=== PATIENT | female | born 1935 | race Caucasian/White ===

== ENCOUNTER 2017-05-12 19:36 | Emergency (ER) | payer MEDICARE, SELFPAY ==
[2017-05-12 19:38] VITALS: BP 167/91; PULSE 92; RESP 18; TEMP 36.6; O2SAT 95; BMI 32.1
--- NOTE | 2017-05-12 20:48 | US_ITS ---
STUDY: ABDOMINAL ULTRASOUND - RIGHT UPPER QUADRANT REASON FOR VISIT: Female, 81 years old. Right upper quadrant pain TECHNIQUE: Ultrasound evaluation of the right upper quadrant was performed with real-time and static damon-scale imaging. TECHNICAL QUALITY: Adequate. COMPARISON: None. FINDINGS: Liver: The liver measures 19.1 cm. There is normal echogenicity of the liver. The bile ducts are within normal limits. There is hepatic color flow. The direction of portal flow is hepatopetal. There is no demonstrated mass lesion. Gallbladder: There is a markedly distended gallbladder. The gallbladder wall measures 6.6 mm. There is a negative sonographic Cruz's sign. There is pericholecystic fluid. There are multiple echogenic structures within the gallbladder, consistent with multiple gallstones. Common Bile Duct (C.B.D.): The common bile duct measures 7 mm. Pancreas: Normal size of the head, body and tail of the pancreas. There is normal echogenicity of the pancreas. There is no demonstrated pancreatic mass or cyst. Right Kidney: Normal size of the right kidney. The right kidney measures 11.1 x 4.2 x 4.1 cm. Normal renal cortex. The right cortex measures 1.1 cm. There is no demonstrated renal mass or cyst. There is no right hydronephrosis. US/Gallbladder IMPRESSION: Thick GB wall. There is a negative sonographic Cruz's sign. There is pericholecystic fluid. There are multiple echogenic structures within the gallbladder, consistent with multiple gallstones. Cholecystitis is suggested. There is dilation of the common bile duct. A common bile duct stone is not seen. Electronically Signed: Trace Knutson MD at 22:37 EST , Service support ,
[2017-05-12 21:09] LABS: Absolute Lymphocyte Count 1.57 X10^3/ul (0.83-4.51); Absolute Neutrophil Count 6.6 X10^3/uL (2.0-7.7); Basophil# 0.02 X10^3/uL; Basophil% 0.2 % (0-1); Eosinophils% 2.2 % (0-5); Hematocrit 43.1 % (37-47); Hemoglobin 14.1 g/dl (12.0-15.0); Lymphocyte # 1.57 X10^3/ul (4.0); Lymphocyte % 16.9 % (19-41); Mean Corp Hgb Conc 32.7 g/gl (32-36); Mean Corpuscular Hgb 30.8 pg (27.0-32.0); Mean Corpuscular Volume 94.1 fL (81-99); Mean Platelet Vol. 10.4 fl (6.2-12.0); Monocyte% 9.7 % (0-10); Neutrophil # 6.57 X10^3/uL (2.7-7.7); Neutrophil % 70.9 % (47-70); POSITIVE COUNT NO; POSITIVE DIFFERENTIAL NO; POSITIVE MORPHOLOGY NO; Platelet Count 244 K/mm3 (150-450); RBC Distribution Width CV 14.1 % (11.6-14.6); RBC Distribution Width SD 48.1 fl (35.1-43.9); Red Blood Count 4.58 M/mm3 (4.2-5.4); White Blood Count 9.3 K/mm3 (4.4-11.0)
[2017-05-12 21:22] LABS: ALB/GLOB Ratio 0.8 RATIO (0.9-2.4); AST(SGOT) 18 U/L (15-37); Alanine Aminotransfer ALT/SGPT 20 U/L (12-78); Albumin, Serum 3.5 g/dL (3.4-5.0); Alkaline Phosphatase 84 U/L (45-117); Anion Gap 10 (5-15); BUN 15 mg/dL (7-18); BUN/Creat Ratio 18.3 RATIO (10-20); Calcium,Total 9.3 mg/dL (8.5-10.1); Chloride 104 mmol/L (98-107); Creatinine, Serum 0.82 mg/dL (0.55-1.02); EST Glomerular Filtration Rate 71 mL/min (>60); Est Glom Filt Rate - Afr Amer 86 mL/min (>60); Estimated Creatinine Clearance 47.25 ml/min; Globulin 4.3 g/dL (2.2-4.2); Glucose 139 mg/dL (70-110); Lipase 80 U/L (73-393); Potassium 3.5 mmol/L (3.5-5.1); Protein, Total 7.8 g/dL (6.4-8.2); Sodium Level 140 mmol/L (136-145)
[2017-05-12 21:59] VITALS: BP 154/75; PULSE 75; RESP 18; O2SAT 95
--- NOTE | 2017-05-12 23:08 | ED.VISSUMM ---
- ER Visit Summary Date of Service: 05/12/17 Chief Complaint: Abdominal pain History of Present Illness: The patient is a 81 F who presents with abdominal pain. She does have a known history of gallstones. Yesterday she had a primary rib sandwich and Parmesan fries. A couple of hours later she began developed right upper quadrant abdominal pain which occasionally radiated into the back or to the mid abdomen. Currently she actually only has minimal pain. She denies any nausea vomiting diarrhea. No fevers. Physical Examination: Afebrile vitals are stable Heart regular rate and rhythm Lungs are clear Abdomen soft nondistended she is tender to palpation in the right upper quadrant but she does not have a Cruz sign no guarding no rebound she does not appear to have peritonitis Extremities are nontender Test Results: CBC CMP lipase all normal. Right upper quadrant ultrasound shows a thickened gallbladder wall at 6.6 mm but a negative sonographic Cruz sign there is pericholecystic fluid multiple gallstones the common bile duct is abnormal at 7 mm but no common bile duct stone is noted. Emergency Department Course and Treatment: By the end of history and physical examination the patient now states she actually has no pain. Her labs are normal there is no leukocytosis or shift. There is no fever or tachycardia. Her ultrasound does show thickened wall and some pericholecystic fluid but negative sonographic Cruz sign. On reevaluation when asked how she felt she states I feel great. I discussed findings with Dr. Hong, general surgery engineering and operations director. We feel the patient can be safely discharged and follow-up closely as an outpatient with likely surgery within the next 1-2 days. Patient was given clear instructions to return should she develop any fevers vomiting recurrent or worsening pain. Treatment Plan: [] Disposition: Discharge Impression: Cholelithiasis This note was generated with [employer] dictation software. It may contain incorrect words, spelling, and punctuation that were not noted in review of the chart prior to signing ED Disposition - Plan for ED Patient: Chief Complaint: Abd Pain Referrals: Shelton Rosa MD [Primary Care Provider] -
[2017-05-12 23:11] VITALS: BP 152/74; PULSE 77; RESP 18; O2SAT 97
--- NOTE | 2017-05-12 23:16 | ED.DEP ---
ED Disposition - Plan for ED Patient: Chief Complaint: Abd Pain Instructions: Discharge Instructions for Gallstones Referrals: Shelton Rosa MD [Primary Care Provider] - Sharon Hong MD [STAFF PHYSICIAN] -
== END 2017-05-12 23:28 | disposition home or self-care (01) ==
PROVIDERS: Emergency Provider Emergency Medicine; Family Provider Family Medicine; PCP Family Medicine
DX: K80.20 Calculus of gallbladder without cholecystitis without obstruction (principal); I10 Essential (primary) hypertension; J45.909 Unspecified asthma, uncomplicated; Z79.899 Other long term (current) drug therapy
CPT/HCPCS: 76705; 80053; 83690; 85025; 99283; A4216